=== PATIENT | male | born 1970 | race Two or more races ===

== ENCOUNTER 2022-12-13 11:24 | Emergency (ER) | payer OTHER ==
[~2022-12-13] VITALS: Ht 177.8 cm; Wt 68.0 kg
[~2022-12-13 11:24] MED LIST: FENOFIBRATE150 MG PO; FIORICET 50-301 EACH PO; LOSARTAN POTASS50 MG PO; SYNTHROID50 MCG PO
[2022-12-13] MEDS ORDERED: PROPRANOLOL HCL10 MG (12:15)
[2022-12-13] MEDS ORDERED: AMLODIPINE-OLM1 EAC2 (12:15)
== END 2022-12-13 19:59 | disposition home or self-care (01) ==
LOC: ER 11:24
DX: J40 Bronchitis, not specified as acute or chronic (principal); Z20.822 Contact with and (suspected) exposure to COVID-19; E03.9 Hypothyroidism, unspecified; I10 Essential (primary) hypertension